=== PATIENT | female | born 1990 | race Caucasian/White ===

== ENCOUNTER 2019-09-17 13:19 | Emergency (ER) | payer OTHER ==
[~2019-09-17] VITALS: Ht 160 cm; Wt 51.3 kg
[~2019-09-17 13:19] MED LIST: COLACE 100 MG100 MG; IBUPROFEN 600600 M1
[2019-09-17] MEDS ORDERED: ADDERALL 20 MG20 MG PO (13:55)
[2019-09-17] MEDS ORDERED: TESSALON PERLE100 MG PO (14:37)
[2019-09-17] MEDS ORDERED: ZPAK PO (14:37)
[2019-09-17] MEDS ORDERED: VENTOLIN HFA 1818 GM INH (14:37)
[2019-09-17 15:54] VITALS: BP 102/68
== END 2019-09-17 15:56 | disposition home or self-care (01) ==
LOC: M.ERS 13:19
DX: J06.9 Acute upper respiratory infection, unspecified (principal); Z20.828 Contact with and (suspected) exposure to other viral communicable diseases; F17.210 Nicotine dependence, cigarettes, uncomplicated